=== PATIENT | female | born 1960 | race Native Hawaiian/Other Pacific Islander ===

== ENCOUNTER 2019-09-13 22:04 | Inpatient (IN) | payer MEDICAID ==
[~2019-09-13] VITALS: Ht 162.6 cm; Wt 90.3 kg
[2019-09-13] MEDS ORDERED: SIMV-259 PO (22:22)
[2019-09-13] MEDS ORDERED: METF-960 PO (22:22)
[2019-09-13] MEDS ORDERED: METO25XL PO (22:22)
[2019-09-13] MEDS ORDERED: LISI-660 PO (22:22)
[2019-09-13 22:25] LABS: GLUCOSE,POINT OF CARE 173 MG/DL (70-110)
[2019-09-13] MEDS ORDERED: ALBUTEROL SULFATE 2.5 MG/0.5 ML NEB SOLUTION NEB ONE (23:00)
[2019-09-13 23:34] LABS: BASOPHILS % (AUTO) 0.8 % (0.0-2.0); EOSINOPHILS % (AUTO) 1.1 % (1.0-6.0); HEMATOCRIT 35.8 % (36-46); HEMOGLOBIN 11.3 g/dL (12.0-16.0); LYMPHOCYTES # (AUTO) 1.4 K/uL (1.0-4.8); LYMPHOCYTES % (AUTO) 18.5 % (22.0-44.0); MEAN CORPUSCULAR HEMOGLOBIN 24.3 pg (26.0-34.0); MEAN CORPUSCULAR HGB CONC 31.5 G/dL (31.0-37.0); MEAN CORPUSCULAR VOLUME 77 fL (80-100); MONOCYTES # (AUTO) 0.7 K/uL (0.1-1.0); MONOCYTES % (AUTO) 9.3 % (2.0-9.0); NEUTROPHILS # (AUTO) 5.3 K/uL (1.8-7.7); NEUTROPHILS % (AUTO) 70.3 % (40.0-70.0); PLATELET COUNT (AUTO) 249 K/uL (150-450); RED BLOOD CELL COUNT(AUTO) 4.64 MIL/uL (4.00-5.20); RED CELL DISTRIBUTION WIDTH 15.6 % (11.5-14.5)
[2019-09-13 23:46] LABS: CALCIUM, TOTAL 8.6 mg/dL (8.8-10.5); CREATININE 1.37 mg/dL (0.60-1.30); POTASSIUM 3.5 mmol/L (3.5-5.1)
[2019-09-13] MEDS ORDERED: 0.9% SODIUM CHLORIDE 5 ML NEB SOLUTION NEB ONE (23:47)
[2019-09-13 23:50] LABS: INR 1.2 (0.9-1.1); PROTHROMBIN TIME 11.9 SEC (9.4-11.6)
[2019-09-13 23:52] LABS: ALBUMIN 3.2 g/dL (3.4-5.0); TOTAL PROTEIN, SERUM 7.1 g/dL (6.4-8.2)
[2019-09-14] MEDS ORDERED: FUROSEMIDE 40 MG/4 ML VIAL IVP ONE
[2019-09-14] MEDS ORDERED: NITROGLYCERIN 0.4 MG SUBLINGUAL TABLET #25 SL ONE (00:15)
[2019-09-14] MEDS ORDERED: ASPIRIN 325 MG TABLET PO ONE (00:15)
[2019-09-14] MEDS ORDERED: ONDANSETRON HCL 4 MG/2 ML VIAL IVP PRN ×2 (01:30→11:45)
[2019-09-14] MEDS ORDERED: ACETAMINOPHEN 325 MG TABLET PO PRN ×2 (01:30→11:45)
[2019-09-14] MEDS ORDERED: 0.9% SODIUM CHLORIDE 10 ML SYRINGE IVP PRN (01:30)
[2019-09-14] MEDS: HydrALAZINE HCL 20 MG/ML VIAL IVP ONE ×2 (03:00→04:01)
[2019-09-14 05:51] VITALS: BP 139/93
[2019-09-14 07:32] VITALS: BP 151/97
[2019-09-14 11:24] VITALS: BP 147/106
[2019-09-14] MEDS ORDERED: INSULIN LISPRO 100 UNITS/ML SQ PRN (11:45)
[2019-09-14] MEDS ORDERED: BISACODYL 10 MG RECTAL RECTAL SUPPOSITORY PR PRN (11:45)
[2019-09-14] MEDS ORDERED: MORPHINE SULFATE 2 MG/ML SYRINGE IVP PRN (11:45)
[2019-09-14] MEDS ORDERED: DEXTROSE 50%-WATER 25 GM/50 ML SYRINGE IVP PRN (11:45)
[2019-09-14] MEDS ORDERED: IPRATROPIUM BROMIDE 0.5 MG/2.5 ML NEB SOLUTION NEB PRN (11:45)
[2019-09-14] MEDS ORDERED: ALBUTEROL SULFATE 2.5 MG/0.5 ML NEB SOLUTION NEB PRN (11:45)
[2019-09-14] MEDS ORDERED: HYDROCODONE/ACETAMINOPHEN 5-325 MG TABLET PO PRN (11:45)
[2019-09-14] MEDS ORDERED: MAGNESIUM HYDROXIDE SUSPENSION 30 ML UDCUP PO PRN (11:45)
[2019-09-14] MEDS ORDERED: ZOLPIDEM TARTRATE 5 MG TABLET PO PRN (11:45)
[2019-09-14] MEDS ORDERED: HydrALAZINE HCL 20 MG/ML VIAL IVP PRN (14:30)
[2019-09-14] MEDS: HEPARIN SODIUM,PORCINE 5,000 UNITS/ML VIAL SQ SCH ×2 (15:40→21:28)
[2019-09-14] MEDS: ALBUTEROL SULFATE 2.5 MG/0.5 ML NEB SOLUTION NEB SCH ×2 (16:12→20:00)
[2019-09-14] MEDS: IPRATROPIUM BROMIDE 0.5 MG/2.5 ML NEB SOLUTION NEB SCH ×2 (16:12→20:00)
[2019-09-14 16:18] VITALS: BP 141/89
[2019-09-14 20:15] VITALS: BP 138/97
[2019-09-14] MEDS: CARVEDILOL 6.25 MG TABLET PO SCH (21:28)
[2019-09-14] MEDS: DOCUSATE SODIUM 100 MG CAPSULE PO SCH (21:28)
[2019-09-14] MEDS: FUROSEMIDE 20 MG/2 ML VIAL IVP SCH (21:28)
[2019-09-15] VITALS (7 sets, daily range): BP systolic 107–134; BP diastolic 71–98
[2019-09-15] MEDS: IPRATROPIUM BROMIDE 0.5 MG/2.5 ML NEB SOLUTION NEB SCH ×4 (02:36→19:56)
[2019-09-15] MEDS: ALBUTEROL SULFATE 2.5 MG/0.5 ML NEB SOLUTION NEB SCH ×4 (02:36→19:56)
[2019-09-15 07:15] LABS: ALBUMIN 2.9 g/dL (3.4-5.0); BILIRUBIN,TOTAL 1.6 mg/dL (0.1-1.0); CALCIUM, TOTAL 8.3 mg/dL (8.8-10.5); CREATININE 1.27 mg/dL (0.60-1.30); TOTAL PROTEIN, SERUM 6.6 g/dL (6.4-8.2)
[2019-09-15 07:48] LABS: POTASSIUM 2.9 mmol/L (3.5-5.1)
[2019-09-15 08:01] LABS: GLUCOMETER DEV NAME(LOC) 5S.2A; GLUCOSE,POINT OF CARE 100 MG/DL (70-110)
[2019-09-15 08:01] LABS: GLUCOMETER DEV NAME(LOC) 5S.2A; GLUCOSE,POINT OF CARE 200 MG/DL (70-110)
[2019-09-15 08:02] LABS: GLUCOMETER DEV NAME(LOC) 5S.1; GLUCOSE,POINT OF CARE 136 MG/DL (70-110)
[2019-09-15] MEDS ORDERED: POTASSIUM CHL 10 MEQ/WATER 50 ML IV SCH ×2 (08:15)
[2019-09-15] MEDS ORDERED: INSULIN LISPRO 100 UNITS/ML SQ ONE (08:15)
[2019-09-15] MEDS ORDERED: INSULIN LISPRO 100 UNITS/ML SQ PRN (08:15)
[2019-09-15] MEDS ORDERED: LISINOPRIL 5 MG TABLET PO SCH (09:00)
[2019-09-15] MEDS ORDERED: SODIUM CHLORIDE 0.9% 1,000 ML ONE (09:13)
[2019-09-15] MEDS: HEPARIN SODIUM,PORCINE 5,000 UNITS/ML VIAL SQ SCH ×3 (09:33→23:41)
[2019-09-15] MEDS: DOCUSATE SODIUM 100 MG CAPSULE PO SCH ×2 (09:33→20:33)
[2019-09-15] MEDS: FUROSEMIDE 20 MG/2 ML VIAL IVP SCH ×2 (09:33→20:32)
[2019-09-15] MEDS: CARVEDILOL 6.25 MG TABLET PO SCH ×2 (09:33→20:33)
[2019-09-15] MEDS: ASPIRIN 81 MG EC TABLET PO SCH (09:33)
[2019-09-15] MEDS: SIMVASTATIN 10 MG TABLET PO SCH (09:34)
[2019-09-15] MEDS: PANTOPRAZOLE SODIUM 40 MG DR TABLET PO SCH (09:34)
[2019-09-15] MEDS ORDERED: POTASSIUM CHLORIDE 20 MEQ ER TABLET PO ONE (10:00)
[2019-09-15 12:12] LABS: AMPHET/METH SCREEN,URINE NEGATIVE (NEGATIVE); BARBITURATE SCREEN, URINE NEGATIVE (NEGATIVE); BENZODIAZEPINES SCREEN,URINE NEGATIVE (NEGATIVE); CANNABINOID SCREEN,URINE NEGATIVE (NEGATIVE); COCAINE SCREEN,URINE NEGATIVE (NEGATIVE); METHADONE SCREEN, URINE NEGATIVE (NEGATIVE); OPIATE SCREEN,URINE NEGATIVE (NEGATIVE); PHENCYCLIDINE SCREEN,URINE NEGATIVE (NEGATIVE)
[2019-09-15] MEDS: INSULIN LISPRO 100 UNITS/ML SQ PRN ×2 (12:19→17:14)
[2019-09-15 17:32] LABS: GLUCOMETER DEV NAME(LOC) 5S.1; GLUCOSE,POINT OF CARE 163 MG/DL (70-110)
[2019-09-15 20:23] LABS: GLUCOMETER DEV NAME(LOC) 5S.2A; GLUCOSE,POINT OF CARE 154 MG/DL (70-110)
[2019-09-16] MEDS: IPRATROPIUM BROMIDE 0.5 MG/2.5 ML NEB SOLUTION NEB SCH ×2 (02:01→09:09)
[2019-09-16] MEDS: ALBUTEROL SULFATE 2.5 MG/0.5 ML NEB SOLUTION NEB SCH ×2 (02:01→09:09)
[2019-09-16 04:42] VITALS: BP 127/87
[2019-09-16 06:39] LABS: GLUCOMETER DEV NAME(LOC) 5S.1; GLUCOSE,POINT OF CARE 135 MG/DL (70-110)
[2019-09-16 06:39] LABS: GLUCOMETER DEV NAME(LOC) 5S.1; GLUCOSE,POINT OF CARE 131 MG/DL (70-110)
[2019-09-16 07:02] LABS: BASOPHILS % (AUTO) 1.1 % (0.0-2.0); EOSINOPHILS % (AUTO) 4.4 % (1.0-6.0); HEMATOCRIT 34.5 % (36-46); LYMPHOCYTES # (AUTO) 1.6 K/uL (1.0-4.8); LYMPHOCYTES % (AUTO) 27.6 % (22.0-44.0); MEAN CORPUSCULAR HEMOGLOBIN 24.6 pg (26.0-34.0); MEAN CORPUSCULAR HGB CONC 31.8 G/dL (31.0-37.0); MEAN CORPUSCULAR VOLUME 77 fL (80-100); MONOCYTES # (AUTO) 0.8 K/uL (0.1-1.0); MONOCYTES % (AUTO) 13.9 % (2.0-9.0); PLATELET COUNT (AUTO) 248 K/uL (150-450); RED BLOOD CELL COUNT(AUTO) 4.46 MIL/uL (4.00-5.20); RED CELL DISTRIBUTION WIDTH 15.5 % (11.5-14.5)
[2019-09-16 07:16] LABS: CALCIUM, TOTAL 8.5 mg/dL (8.8-10.5); CREATININE 1.36 mg/dL (0.60-1.30); POTASSIUM 3.4 mmol/L (3.5-5.1)
[2019-09-16 07:38] VITALS: BP 115/76
[2019-09-16] MEDS: DOCUSATE SODIUM 100 MG CAPSULE PO SCH (09:00)
[2019-09-16] MEDS ORDERED: FUROSEMIDE 20 MG TABLET PO SCH (09:00)
[2019-09-16] MEDS: HEPARIN SODIUM,PORCINE 5,000 UNITS/ML VIAL SQ SCH (09:20)
[2019-09-16] MEDS: ASPIRIN 81 MG EC TABLET PO SCH (09:21)
[2019-09-16] MEDS: PANTOPRAZOLE SODIUM 40 MG DR TABLET PO SCH (09:21)
[2019-09-16] MEDS: SIMVASTATIN 10 MG TABLET PO SCH (09:22)
[2019-09-16] MEDS: CARVEDILOL 6.25 MG TABLET PO SCH (09:22)
[2019-09-16] MEDS ORDERED: SIMV10TA97 PO (10:35)
[2019-09-16] MEDS ORDERED: GLIP5TAB11 PO (10:35)
[2019-09-16] MEDS ORDERED: ASPI-1182 PO (10:35)
[2019-09-16] MEDS ORDERED: FURO-152 PO (10:35)
[2019-09-16] MEDS ORDERED: CARV6 PO (10:35)
[2019-09-16] MEDS ORDERED: LISI2.5T2 PO (10:40)
[2019-09-16 11:35] VITALS: BP 123/84
[2019-09-16 12:11] LABS: GLUCOMETER DEV NAME(LOC) 5S.1; GLUCOSE,POINT OF CARE 107 MG/DL (70-110)
== END 2019-09-16 13:00 | disposition home or self-care (01) | DRG 291 ==
LOC: EMS 22:06 → 5S 09-14 02:17
PROVIDERS: ADMIT Internal Medicine; ATTEND Internal Medicine
DX: I13.0 Hypertensive heart and chronic kidney disease with heart failure and stage 1 through stage 4 chronic kidney disease, or unspecified chronic kidney disease (principal); I50.21 Acute systolic (congestive) heart failure; I16.1 Hypertensive emergency; Z85.3 Personal history of malignant neoplasm of breast; E87.6 Hypokalemia; I42.9 Cardiomyopathy, unspecified; F17.210 Nicotine dependence, cigarettes, uncomplicated; J45.909 Unspecified asthma, uncomplicated; E78.5 Hyperlipidemia, unspecified; D64.9 Anemia, unspecified; E11.22 Type 2 diabetes mellitus with diabetic chronic kidney disease; N18.9 Chronic kidney disease, unspecified; Z82.49 Family history of ischemic heart disease and other diseases of the circulatory system
CPT/HCPCS: 80307; 93005; 93306; 94640; 99291; J0360; J1644; J1815; J1940; J3480; J7030